=== PATIENT | female | born 1965 | race Caucasian/White ===

== ENCOUNTER 2016-10-18 13:29 | Emergency (ER) | payer BC, OTHER ==
[~2016-10-18] VITALS: Ht 157.5 cm; Wt 75.0 kg
[2016-10-18 13:33] VITALS: Ht 157.5 cm; Wt 75.0 kg
--- NOTE | 2016-10-18 15:26 | RADRPT ---
PROCEDURE: US Pelvis. CLINICAL INDICATION: Pelvic pain TECHNIQUE: Multiple sonographic images of the pelvis were obtained utilizing hernandez scale, Doppler a nd color flow imaging with transabdominal and endovaginal technique. The images were reviewed on a PACS workstation. COMPARISON: None. FINDINGS: The uterus is visualized and measures 10.4 x 5.7 x 6.2 cm. The endometrial echo complex measures 15. 3 mm in thickness. Multiple uterine fibroids measuring up to approximately 2.1 cm are identified in the uterus. Small Nabothian cysts are seen in the cervix. The right ovary measures 2.4 x 1.6 x 2.1 cm . The left ovary is not well visualized. A small follic le is seen on the right ovary. The right ovary demonstrates normal vascularity.. No adnexal masses or pelvic free fluid are noted. IMPRESSION: Multifibroid uterus. Nabothian cysts in the cervix. Mildly thickened endometrium. Etiology is uncertain. Continued follow-up to assess for persistence of this finding can be considered. Left ovary not well visualized. If characterization of this structure is needed repeat exam or CT/M RI is recommended. If further characterization of the organs of the pelvis is needed MRI should be considered. RPTAT: AA .Kenn Guadalupe MD, Date Time Electronically viewed and signed by .Kenn Guadalupe MD, on 10/18/2016 15:26 .P/
[2016-10-18 15:32] LABS: BASOPHIL # 0.1 10^3/ul (0.0-0.1); BASOPHILS % 0.7 % (0.0-2.0); EOSINOPHILS # 0.1 10^3/ul (0.0-0.5); EOSINOPHILS % 0.9 % (0.0-7.0); HEMATOCRIT 25.7 % (37.0-47.0); HEMOGLOBIN 8.1 g/dl (12.0-16.0); LYMPHOCYTES # 2.2 10^3/ul (0.8-2.9); LYMPHOCYTES % 17.1 % (15.0-51.0); MEAN CORPUSCULAR HEMOGLOBIN 27.1 pg (29.0-33.0); MEAN CORPUSCULAR HGB CONC 31.5 g/dl (32.0-37.0); MEAN PLATELET VOLUME 9.7 fl (7.4-10.4); MONOCYTE # 0.7 10^3/ul (0.3-0.9); MONOCYTES % 5.6 % (0.0-11.0); NEUTROPHILS % 74.9 % (39.0-77.0); PLATELET COUNT 420 10^3/UL (140-415); RED BLOOD COUNT 2.99 10^6/ul (4.20-5.40); RED CELL DISTRIBUTION WIDTH 15.5 % (11.5-14.5)
[2016-10-18 15:51] LABS: ALBUMIN 3.5 g/dl (3.3-4.9); ALBUMIN/GLOBULIN RATIO 1.25; CALCIUM 8.3 mg/dl (8.4-10.2); CREATININE 0.54 mg/dl (0.44-1.00); TOTAL PROTEIN 6.3 g/dl (6.1-8.1)
[2016-10-18] MEDS ORDERED: FERROUS SULFATE (EC) 325 MG TAB PO ONE (16:00)
[2016-10-18] MEDS ORDERED: MEDROXYPROGESTERONE 10 MG TAB PO ONE (16:00)
[2016-10-18 16:13] LABS: ADD UMIC YES; UR ASCORBIC ACID NEGATIVE (NEGATIVE); UR BILIRUBIN (Dip) NEGATIVE (NEGATIVE); UR BLOOD (Dip) 3+ mg/dL (NEGATIVE); UR CLARITY CLOUDY (CLEAR); UR COLOR RED (YELLOW); UR GLUCOSE (Dip) NEGATIVE (NEGATIVE); UR KETONES (Dip) NEGATIVE (NEGATIVE); UR LEUKOCYTE ESTERASE (Dip) NEGATIVE Leu/ul (NEGATIVE); UR MUCUS FEW /HPF (NONE SEEN); UR NITRITE (Dip) NEGATIVE (NEGATIVE); UR RBC > 182 /HPF (0-5); UR SPECIFIC GRAVITY (Dip) 1.024 (1.003-1.030); UR TOTAL PROTEIN (Dip) 2+ mg/dl (NEGATIVE); UR UROBILINOGEN (Dip) NEGATIVE (NEGATIVE)
[2016-10-18] MEDS ORDERED: MEDR10TA2 PO (16:18)
[2016-10-18] MEDS ORDERED: FER325 PO (16:18)
--- NOTE | 2016-10-18 16:24 | ERD ---
ER Documentation Chief Complaint Date/Time DATE: 10/18/16 TIME: 16:23 Chief Complaint pt bib self with c/o vag bleeding since 10/08/16 bleeding worse HPI This 51-year-old female presents with vaginal bleeding for last 5 days. Is approximately 5-10 pads per day. She thought she was having normal menstrual periods but bleeding never stopped. She has a history of anemia and vaginal bleeding but none recently. She has an appointment with the primary doctor later this month. She denies fevers, vomiting, abdominal pain, weakness, shortness breath or chest pain. ROS All systems reviewed and are negative except as per history of present illness. Medications Home Meds Active Scripts Ferrous Sulfate* (Ferrous Sulfate*) 325 Mg Tabec, 325 MG PO TID, #100 TAB Prov:LUIS ARMANDO JAMES MD 10/18/16 Medroxyprogesterone Acetate* (Provera*) 10 Mg Tablet, 10 MG PO DAILY for 5 Days , TAB Prov:LUIS ARMANDO JAMES MD 10/18/16 Allergies Allergies: Coded Allergies: No Known Allergy (Unverified , 10/18/16) PMhx/Soc Medical and Surgical Hx: Unable to obtain Hx Alcohol Use: No Hx Substance Use: No Hx Tobacco Use: No Smoking Status: Never smoker Physical Exam Vitals Vital Signs Date Time Temp Pulse Resp B/P Pulse Ox O2 Delivery O2 Flow Rate FiO2 10/18/16 13:33 98.3 84 16 118/58 98 Physical Exam Const: [], [id number]. Head: Atraumatic Eyes: Normal Conjunctiva. Pallor of the lower lids. ENT: Normal External Ears, Nose and Mouth. Neck: Full range of motion..~ No meningismus. Resp: Clear to auscultation bilaterally Cardio: Regular rate and rhythm, no murmurs Abd: Soft, non tender, non distended. Normal bowel sounds Skin: No petechiae or rashes Back: No midline or flank tenderness Ext: No cyanosis, or edema Neur: Awake and alert Psych: Normal Mood and Affect Result Diagram: 10/18/16 1520 10/18/16 1520 Results 24 hrs Laboratory Tests Test 10/18/16 15:10 10/18/16 15:20 Urine Color RED Urine Clarity CLOUDY Urine pH 6.0 Urine Specific [place] 1.024 Urine Ketones NEGATIVEmg/dL Urine Nitrite NEGATIVEmg/dL Urine Bilirubin NEGATIVEmg/dL Urine Urobilinogen NEGATIVEmg/dL Urine Leukocyte Esterase NEGATIVELeu/ul Urine Microscopic RBC > 182/HPF Urine Microscopic WBC 1/HPF Urine Mucus FEW/HPF Urine Hemoglobin 3+mg/dL Urine Glucose NEGATIVEmg/dL Urine Total Protein 2+mg/dl Urine Test NEGATIVE White Blood Count 13.010^3/ul Red Blood Count 2.9910^6/ul Hemoglobin 8.1g/dl Hematocrit 25.7% Mean Corpuscular Volume 86.0fl Mean Corpuscular Hemoglobin 27.1pg Mean Corpuscular Hemoglobin Concent 31.5g/dl Red Cell Distribution Width 15.5% Platelet Count 59405^3/UL Mean Platelet Volume 9.7fl Neutrophils % 74.9% Lymphocytes % 17.1% Monocytes % 5.6% Eosinophils % 0.9% Basophils % 0.7% Nucleated Red Blood Cells % 0.0/100WBC Neutrophils # (Manual) 9.810^3/ul Lymphocytes # 2.210^3/ul Monocytes # 0.710^3/ul Eosinophils # 0.110^3/ul Basophils # 0.110^3/ul Nucleated Red Blood Cells # 0.010^3/ul Sodium Level 139mmol/L Potassium Level 4.0mmol/L Chloride Level 101mmol/L Carbon Dioxide Level 26mmol/L Anion Gap 16 Blood Urea Nitrogen 12mg/dl Creatinine 0.54mg/dl Glucose Level 93mg/dl Calcium Level 8.3mg/dl Total Bilirubin 0.0mg/dl Direct Bilirubin 0.00mg/dl Indirect Bilirubin 0.0mg/dl Aspartate Amino Transf (AST/SGOT) 16IU/L Alanine Aminotransferase (ALT/SGPT) 30IU/L Alkaline Phosphatase 65IU/L Total Protein 6.3g/dl Albumin 3.5g/dl Globulin 2.80g/dl Albumin/Globulin Ratio 1.25 Lipase 42U/L Current Medications Medications (Trade) Dose Ordered Sig/Ann Route PRN Reason Start Time Stop Time Status Last Admin Dose Admin Ferrous Sulfate (Ferrous Sulfate (Ec)) 325 mg ONCE ONCE PO 10/18/16 16:00 10/18/16 16:01 DC 10/18/16 16:15 Medroxyprogesterone Acetate (Provera) 10 mg ONCE ONCE PO 10/18/16 16:00 10/18/16 16:01 DC 10/18/16 16:15 Procedures/MDM CBC shows a white blood skin of 13 and hemoglobin is 8.1. It is normocytic. CMP is normal. Pelvic ultrasound shows thickened endometrium without additional acute findings. HCG is negative. Patient was given Provera 10 mg of mouth and for sulfate 325 mg by mouth today. Patient presents with vaginal bleeding and thickened endometrium for the last 10 days. Is no signs or symptoms of tachycardia or symptomatic anemia. Patient was treated with 5 day course of Provera instructions to take iron sulfate 3 times a day and follow-up with primary doctor for the radiation treatment and possible biopsy. She should otherwise return to ER for new or worsening symptoms as directed after instructions such as fevers, vomiting, shortness of the chest pain. The patient was stable with no new complaints during the ER course. Clinically, there is no current evidence to suggest meningitis, sepsis, acute abdomen, pneumonia, acute coronary syndrome, pulmonary embolism, or any other emergent condition appearing to require further evaluation or hospitalization. The patient should certainly return for any new or worsening symptoms per the aftercare instructions. They should otherwise follow-up with her primary care doctor for reevaluation this week. Departure Diagnosis: Primary Impression: Anemia Anemia type: unspecified type Qualified Code: D64.9 - Anemia, unspecified type Additional Impression: Vaginal bleeding Condition: Stable Patient Instructions: Anemia, Iron Deficiency (Adult), Dysfunctional Uterine Bleeding Additional Instructions: Cheque otro vez con moralez doctor primario en el proximo sahu or regresa para mas o nueva simptomas. Va al moralez doctor/ specialista para mas evaluacon en el proximo semana. posiblemente necesita autorizado de moralez doctor primario para specialista. Regresa para fiebre, o mas o nueva simptomas. LUIS ARMANDO JAMES MD Oct 18, 2016 16:24
[2016-10-21] MEDS ORDERED: FENTAnyl 2MCG/ML-ROPIV 0.2% 100 ML ONE (10:04)
== END 2016-10-18 16:27 | disposition home or self-care (01) ==
LOC: FTE 13:29
DX: D64.9 Anemia, unspecified (principal); R10.2 Pelvic and perineal pain
CPT/HCPCS: 76830; 76856; 80053; 81001; 83690; 84703; 85025; 99284; Z7610

== ENCOUNTER 2017-03-13 17:31 | Emergency (ER) | END 2017-03-13 23:10 | disposition home or self-care (01) ==

== ENCOUNTER 2017-10-13 11:58 | Emergency (ER) | END 2017-10-13 15:32 | disposition home or self-care (01) ==